=== PATIENT | female | born 1985 | race Caucasian/White ===

== ENCOUNTER 2018-01-03 20:49 | Emergency (ER) | payer MEDICAID, OTHER ==
[~2018-01-03] VITALS: Ht 157.5 cm; Wt 118.2 kg
[2018-01-03] MEDS ORDERED: PRENATAL VITS (21:00)
[2018-01-03 22:08] LABS: BASOPHILS # (AUTO) 0.05 x10^3/uL (0-0.1); BASOPHILS % (AUTO) 0 % (0-1); EOSINOPHILS % (AUTO) 1 % (1-7); LYMPHOCYTES # (AUTO) 2.91 x10^3/uL (1-3.4); LYMPHOCYTES % (AUTO) 19 % (22-44); MD NO; MEAN CORPUSCULAR HEMOGLOBIN 29.9 pg (27.0-34.8); MEAN PLATELET VOLUME 8.6 fL (7.4-10.4); MONOCYTES # (AUTO) 0.82 x10^3/uL (0.2-0.8); MONOCYTES % (AUTO) 5 % (2-9); NEUTROPHILS % (AUTO) 74 % (42-75); PLATELET COUNT 398 x10^3/uL (130-400); RED CELL DISTRIBUTION WIDTH 18.2 % (9.6-15.2)
[2018-01-03 22:14] LABS: ALBUMIN 2.8 g/dL (3.4-5.0); ANION GAP 7 mmol/L (5-15); CHLORIDE 107 mmol/L (98-107); CREATININE 0.69 mg/dL (0.55-1.02)
[2018-01-03 22:18] LABS: TROPONIN I < 0.015 ng/mL (0.000-0.045)
[2018-01-03 23:51] VITALS: BP 122/64
== END 2018-01-04 00:37 | disposition home or self-care (01) ==
LOC: ED 01-04 00:34
DX: O26.891 Other specified pregnancy related conditions, first trimester (principal); R07.89 Other chest pain; I45.10 Unspecified right bundle-branch block; R94.31 Abnormal electrocardiogram [ECG] [EKG]; Z3A.12 12 weeks gestation of pregnancy
CPT/HCPCS: 36415; 71045; 80048; 82040; 84484; 85025; 85379; 93005; 99285

== ENCOUNTER 2018-05-13 13:59 | Emergency (ER) | payer MEDICAID ==
[~2018-05-13] VITALS: Ht 157.5 cm; Wt 121.2 kg
[~2018-05-13 13:59] MED LIST: PRENATAL VITS
[2018-05-13 14:45] LABS: BASOPHILS # (AUTO) 0.04 x10^3/uL (0-0.1); BASOPHILS % (AUTO) 0 % (0-1); EOSINOPHILS # (AUTO) 0.13 x10^3/uL (0-0.4); EOSINOPHILS % (AUTO) 1 % (1-7); LYMPHOCYTES # (AUTO) 2.19 x10^3/uL (1-3.4); LYMPHOCYTES % (AUTO) 16 % (22-44); MD NO; MEAN CORPUSCULAR HGB CONC 34.5 g/dL (32.4-35.8); MEAN CORPUSCULAR VOLUME 92.9 fL (80-100); MEAN PLATELET VOLUME 9.1 fL (7.4-10.4); MONOCYTES # (AUTO) 0.87 x10^3/uL (0.2-0.8); MONOCYTES % (AUTO) 6 % (2-9); NEUTROPHILS % (AUTO) 76 % (42-75); PLATELET COUNT 346 x10^3/uL (130-400); RED BLOOD COUNT 4.23 x10^6/uL (3.82-5.3); RED CELL DISTRIBUTION WIDTH 14.6 % (9.6-15.2)
[2018-05-13 14:52] LABS: ALBUMIN 2.6 g/dL (3.4-5.0); ANION GAP 10 mmol/L (5-15); CHLORIDE 108 mmol/L (98-107); CREATININE 0.59 mg/dL (0.55-1.02)
[2018-05-13 15:03] LABS: MICROSCOPIC AUTO
[2018-05-13 15:10] LABS: CULTURE INDICATED? YES
[2018-05-13 16:12] VITALS: BP 107/59
== END 2018-05-13 16:20 | disposition home or self-care (01) ==
LOC: ED 16:00
DX: O23.43 Unspecified infection of urinary tract in pregnancy, third trimester (principal); Z3A.31 31 weeks gestation of pregnancy
CPT/HCPCS: 36415; 71045; 80048; 81001; 82040; 83880; 85025; 87086; 93005; 99285

== ENCOUNTER 2018-06-03 16:09 | Outpatient (CLI) | payer MEDICAID ==
[~2018-06-03] VITALS: Ht 160 cm; Wt 120.5 kg
[2018-06-03 16:22] VITALS: BP 136/70
[2018-06-03 17:22] LABS: MICROSCOPIC AUTO
== END 2018-06-03 18:08 | disposition home or self-care (01) ==
LOC: LDOP 16:09
PROVIDERS: ATTEND Obstetrics & Gynecology
DX: O42.913 Preterm premature rupture of membranes, unspecified as to length of time between rupture and onset of labor, third trimester (principal); Z3A.34 34 weeks gestation of pregnancy
CPT/HCPCS: 59025; 81001; 84112; 87086; 99211; G0463

== ENCOUNTER 2018-07-01 05:08 | Inpatient (IN) | payer MEDICAID ==
[~2018-07-01] VITALS: Ht 157.5 cm; Wt 122.7 kg
[2018-07-01] MEDS ORDERED: OXYTOCIN 30U/ 0.9% NaCL 500ML 500 ML IV PRN ×2 (05:13)
[2018-07-01] MEDS ORDERED: OXYTOCIN 30U/ 0.9% NaCL 500ML 500 ML IV ONE (05:13)
[2018-07-01] MEDS ORDERED: D5%-LACTATED RINGERS 1,000 ML IV SCH (05:13)
[2018-07-01 05:29] VITALS: BP 109/62
[2018-07-01] MEDS ORDERED: FENTANYL PF 100 MCG/2ML IVPush PRN (05:30)
[2018-07-01] MEDS ORDERED: ALUMINUM/MAG/SIMETHICONE 30 ML UDC PO PRN (05:30)
[2018-07-01] MEDS ORDERED: ONDANSETRON 2MG/ML, 2ML IVPush PRN ×2 (05:30→10:30)
[2018-07-01] MEDS ORDERED: CALCIUM CARBONATE 500 MG TAB.CHEW PO PRN (05:30)
[2018-07-01] MEDS ORDERED: FENTANYL PF 100 MCG/2ML IV PRN (05:30)
[2018-07-01] MEDS ORDERED: INSU100I18 SQ-INSULIN (05:40)
[2018-07-01] MEDS ORDERED: INSU100I34 SQ-INSULIN (05:42)
[2018-07-01] MEDS ORDERED: PREN-3 PO (05:42)
[2018-07-01] MEDS ORDERED: OXYTOCIN 30U/ 0.9% NaCL 500ML 500 ML ONE ×2 (05:47→16:54)
[2018-07-01 05:50] LABS: BASOPHILS # (AUTO) 0.05 x10^3/uL (0-0.1); BASOPHILS % (AUTO) 0 % (0-1); EOSINOPHILS # (AUTO) 0.07 x10^3/uL (0-0.4); EOSINOPHILS % (AUTO) 1 % (1-7); LYMPHOCYTES # (AUTO) 2.39 x10^3/uL (1-3.4); LYMPHOCYTES % (AUTO) 21 % (22-44); MD NO; MEAN CORPUSCULAR HEMOGLOBIN 31.6 pg (27.0-34.8); MEAN CORPUSCULAR HGB CONC 34.1 g/dL (32.4-35.8); MEAN CORPUSCULAR VOLUME 92.6 fL (80-100); MEAN PLATELET VOLUME 10.5 fL (7.4-10.4); MONOCYTES # (AUTO) 0.68 x10^3/uL (0.2-0.8); MONOCYTES % (AUTO) 6 % (2-9); NEUTROPHILS # (AUTO) 8.46 x10^3/uL (1.8-6.8); NEUTROPHILS % (AUTO) 73 % (42-75); PLATELET COUNT 235 x10^3/uL (130-400); RED BLOOD COUNT 4.25 x10^6/uL (3.82-5.3); RED CELL DISTRIBUTION WIDTH 15.6 % (9.6-15.2)
[2018-07-01] MEDS: LACTATED RINGERS 1,000 ML IV SCH ×2 (05:56→09:47)
[2018-07-01] MEDS ORDERED: FENTANYL/BUPIV./NS/PF 250 ML EPIDCONT SCH ×2 (09:02→10:26)
[2018-07-01] MEDS ORDERED: FENTANYL PF 500 MCG, BUPIVACAINE/PF 0.5%, 30ML 62.5 ML in SODIUM CHLORIDE 0.9% 177.5 ML EPIDCONT SCH (09:30)
[2018-07-01] MEDS ORDERED: LIDOCAINE 1%-EPI 1:100K, 20ML ONE (09:56)
[2018-07-01] MEDS ORDERED: BUPIVACAINE 0.25% ONE (09:56)
[2018-07-01] MEDS ORDERED: LACTATED RINGERS 1,000 ML IV SCH (10:26)
[2018-07-01] MEDS ORDERED: DIPHENHYDRAMINE 50 MG/ML, 1ML IVPush PRN (10:30)
[2018-07-01] MEDS ORDERED: LACTATED RINGERS 1,000 ML IVBOLUS PRN (10:30)
[2018-07-01] MEDS ORDERED: NALOXONE 0.4 MG/ML, 1ML IVPush PRN (10:30)
[2018-07-01] MEDS ORDERED: EPHEDRINE 50 MG/ML, 1ML IVPush PRN (10:30)
[2018-07-01] MEDS ORDERED: NEWBORN KIT ONE (16:21)
[2018-07-01] MEDS ORDERED: DOCUSATE 100 MG CAPSULE PO PRN (16:30)
[2018-07-01] MEDS ORDERED: MISOPROSTOL 200 MCG TABLET PR PRN (16:30)
[2018-07-01] MEDS ORDERED: METHYLERGONOVINE 0.2 MG/ML IM PRN (16:30)
[2018-07-01] MEDS ORDERED: ONDANSETRON 2MG/ML, 2ML IV PRN (16:30)
[2018-07-01] MEDS ORDERED: ACETAMINOPHEN 325 MG TABLET PO PRN (16:30)
[2018-07-01] MEDS ORDERED: OXYcodone/APAP 5/325MG TABLET PO PRN (16:30)
[2018-07-01] MEDS ORDERED: IBUPROFEN 600 MG TABLET ONE (16:54)
[2018-07-01] MEDS: IBUPROFEN 600 MG TABLET PO PRN (16:57)
[2018-07-01] MEDS: OXYTOCIN 30U/ 0.9% NaCL 500ML 500 ML IV SCH (16:57)
[2018-07-01 19:25] VITALS: BP 110/73
[2018-07-01] MEDS: OXYcodone/APAP 5/325MG TABLET PO PRN (20:45)
[2018-07-01 23:30] VITALS: BP 114/72
[2018-07-02] MEDS: IBUPROFEN 600 MG TABLET PO PRN ×3 (00:16→15:39)
[2018-07-02] MEDS: OXYTOCIN 30U/ 0.9% NaCL 500ML 500 ML IV SCH ×2 (02:25→12:25)
[2018-07-02 04:15] VITALS: BP 101/58
[2018-07-02 06:07] LABS: BASOPHILS # (AUTO) 0.04 x10^3/uL (0-0.1); BASOPHILS % (AUTO) 0 % (0-1); EOSINOPHILS # (AUTO) 0.36 x10^3/uL (0-0.4); EOSINOPHILS % (AUTO) 3 % (1-7); LYMPHOCYTES # (AUTO) 2.81 x10^3/uL (1-3.4); LYMPHOCYTES % (AUTO) 21 % (22-44); MD NO; MEAN CORPUSCULAR HEMOGLOBIN 32.4 pg (27.0-34.8); MEAN CORPUSCULAR HGB CONC 34.5 g/dL (32.4-35.8); MEAN CORPUSCULAR VOLUME 93.7 fL (80-100); MEAN PLATELET VOLUME 10.6 fL (7.4-10.4); MONOCYTES # (AUTO) 0.86 x10^3/uL (0.2-0.8); MONOCYTES % (AUTO) 6 % (2-9); NEUTROPHILS # (AUTO) 9.53 x10^3/uL (1.8-6.8); NEUTROPHILS % (AUTO) 70 % (42-75); PLATELET COUNT 201 x10^3/uL (130-400); RED CELL DISTRIBUTION WIDTH 16.6 % (9.6-15.2)
[2018-07-02 07:20] VITALS: BP 122/80
[2018-07-02] MEDS: OXYcodone/APAP 5/325MG TABLET PO PRN ×3 (07:46→17:01)
[2018-07-02] MEDS ORDERED: PRENATAL VIT/IRON/FA 1 EACH TABLET PO SCH (09:00)
[2018-07-02 12:27] VITALS: BP 114/69
[2018-07-02] MEDS ORDERED: IBUP-1222 PO (14:05)
[2018-07-02 17:30] VITALS: BP 117/80
[2018-07-02 19:30] VITALS: BP 101/60
== END 2018-07-02 21:10 | disposition home or self-care (01) | DRG 806 ==
LOC: LDIP 05:08 → 2NW 18:55
PROVIDERS: ADMIT Obstetrics & Gynecology; ATTEND Obstetrics & Gynecology
PROC: 10E0XZZ Delivery of Products of Conception, External Approach (ICD-10-PCS; principal; 2018-07-01)
PROC: 10H07YZ Insertion of Other Device into Products of Conception, Via Natural or Artificial Opening (ICD-10-PCS; 2018-07-01)
PROC: 10907ZC Drainage of Amniotic Fluid, Therapeutic from Products of Conception, Via Natural or Artificial Opening (ICD-10-PCS; 2018-07-01)
PROC: 3E0R3BZ Introduction of Anesthetic Agent into Spinal Canal, Percutaneous Approach (ICD-10-PCS; 2018-07-01)
PROC: 00HU33Z Insertion of Infusion Device into Spinal Canal, Percutaneous Approach (ICD-10-PCS; 2018-07-01)
DX: O99.214 Obesity complicating childbirth (principal); Z68.42 Body mass index [BMI] 45.0-49.9, adult; Z37.0 Single live birth; E66.01 Morbid (severe) obesity due to excess calories; O24.424 Gestational diabetes mellitus in childbirth, insulin controlled; O66.0 Obstructed labor due to shoulder dystocia; Z3A.38 38 weeks gestation of pregnancy
CPT/HCPCS: 36415; J7121; 82962; 85025; 86850; 86900; G0378; J2590; J7120

== ENCOUNTER → 2018-09-13 | Outpatient (CLI) | payer OTHER ==
[~2018-09-13] MED LIST changes: +IBUP-1222 PO; +INSU100I18 SQ-INSULIN; +INSU100I34 SQ-INSULIN; +PREN-3 PO
== END | disposition home or self-care (01) ==
LOC: LAB 13:40
PROVIDERS: ATTEND Obstetrics & Gynecology
DX: Z01.812 Encounter for preprocedural laboratory examination (principal)
CPT/HCPCS: 36415; 84702

== ENCOUNTER → 2019-01-15 | Outpatient (CLI) | payer OTHER ==
[2019-01-15 14:04] LABS: BASOPHILS # (AUTO) 0.03 x10^3/uL (0-0.1); BASOPHILS % (AUTO) 0 % (0-1); EOSINOPHILS # (AUTO) 0.31 x10^3/uL (0-0.4); EOSINOPHILS % (AUTO) 3 % (1-7); LYMPHOCYTES # (AUTO) 2.38 x10^3/uL (1-3.4); LYMPHOCYTES % (AUTO) 22 % (22-44); MD NO; MEAN CORPUSCULAR HEMOGLOBIN 31.9 pg (27.0-34.8); MEAN CORPUSCULAR HGB CONC 33.9 g/dL (32.4-35.8); MEAN CORPUSCULAR VOLUME 93.8 fL (80-100); MONOCYTES % (AUTO) 5 % (2-9); NEUTROPHILS # (AUTO) 7.75 x10^3/uL (1.8-6.8); NEUTROPHILS % (AUTO) 70 % (42-75); PLATELET COUNT 427 x10^3/uL (130-400); RED BLOOD COUNT 4.67 x10^6/uL (3.82-5.3); RED CELL DISTRIBUTION WIDTH 13.9 % (9.6-15.2)
[2019-01-15 14:12] LABS: ALANINE AMINOTRANSFERASE 22 U/L (12-78); ALBUMIN 3.7 g/dL (3.4-5.0); ANION GAP 7 mmol/L (5-15); CALCIUM 8.8 mg/dL (8.5-10.1); CHLORIDE 109 mmol/L (98-107)
[2019-01-15 14:39] LABS: ALKALINE PHOSPHATASE 96 U/L (45-117); BILIRUBIN,TOTAL 0.3 mg/dL (0.2-1.0); CREATININE 0.74 mg/dL (0.55-1.02); FREE T4 (FREE THYROXINE) 0.87 ng/dL (0.76-1.46); THYROID STIMULATING HORMONE 0.931 mIU/L (0.358-3.740); TOTAL PROTEIN 7.8 g/dL (6.4-8.2)
[2019-01-15 14:43] LABS: FOLATE LEVEL > 20.0 ng/mL (3.1-17.5)
== END | disposition home or self-care (01) ==
LOC: LAB 13:37
PROVIDERS: ATTEND Nurse Practitioner Family
DX: Z39.1 Encounter for care and examination of lactating mother (principal); Z00.00 Encounter for general adult medical examination without abnormal findings; D72.829 Elevated white blood cell count, unspecified; F32.0 Major depressive disorder, single episode, mild; R53.83 Other fatigue; R63.5 Abnormal weight gain; Z72.820 Sleep deprivation
CPT/HCPCS: 36415; 80053; 82607; 82746; 83036; 84439; 84443; 85025

== ENCOUNTER → 2019-09-24 | Outpatient (CLI) | payer OTHER | END | disposition home or self-care (01) | LOC: RAD 14:59 | PROVIDERS: ATTEND Physical Medicine & Rehabilitation Pain Medicine | DX: M47.817 Spondylosis without myelopathy or radiculopathy, lumbosacral region (principal); M46.1 Sacroiliitis, not elsewhere classified; M51.36 Other intervertebral disc degeneration, lumbar region; G89.4 Chronic pain syndrome; Z71.9 Counseling, unspecified | CPT/HCPCS: 72148 ==

== ENCOUNTER 2020-01-09 08:51 | Emergency (ER) | payer OTHER ==
[~2020-01-09] VITALS: Ht 157.5 cm; Wt 121.0 kg
[2020-01-09 08:56] VITALS: BP 121/74
--- NOTE | 2020-01-09 09:06 | NUR ---
THIS IS A 34 YEAR OLD FEMALE WHO C/O OF SEVERE PELVIC PAIN. PT STATES SHE HAD GONE TO THE URGENT CARE AND HAD A URINE SAMPLE AND EVERYTHING WAS "POSITIVE" AND WAS TOLD TO COME TO THE ED. PT PLACED IN GOWN. JJ ARBOLEDA.
--- NOTE | 2020-01-09 09:29 | NUR ---
Pt states that she is having bleeding from her vaginal area. Denies mentration. States she has "implented control" while motioning to her left upper extermity. pt verbalized at the she tested "positive everything except pregancy." pt states she needs to void but was told she was going to need "a small catheter." Encouraged pt to wait for the doctor to confirm orders but educted on how to obtain a clean catch UA if unable to wait for MD. pt verbalizes understanding.
--- NOTE | 2020-01-09 09:57 | NUR ---
straight cath completed using sterile technique. Lab obtianed was red in color. Handed to laboratory miller. pt up to the bathrrom to void.
[2020-01-09 10:23] LABS: MICROSCOPIC INDICATED
[2020-01-09 10:28] LABS: MEAN CORPUSCULAR HEMOGLOBIN 31.2 pg (27.0-34.8); MEAN CORPUSCULAR HGB CONC 33.8 g/dL (32.4-35.8); MEAN CORPUSCULAR VOLUME 92.4 fL (80-100); MEAN PLATELET VOLUME 8.4 fL (7.4-10.4); PLATELET COUNT 421 x10^3/uL (130-400); RED BLOOD COUNT 4.91 x10^6/uL (3.82-5.3); RED CELL DISTRIBUTION WIDTH 14.2 % (9.6-15.2)
[2020-01-09 10:35] LABS: ALBUMIN 3.6 g/dL (3.4-5.0); ANION GAP 9 mmol/L (5-15); CALCIUM 8.4 mg/dL (8.5-10.1); CHLORIDE 110 mmol/L (98-107)
[2020-01-09 10:41] LABS: ALANINE AMINOTRANSFERASE 19 U/L (12-78); ALKALINE PHOSPHATASE 82 U/L (45-117); BILIRUBIN,TOTAL 0.5 mg/dL (0.2-1.0); CREATININE 0.73 mg/dL (0.55-1.02); TOTAL PROTEIN 8.1 g/dL (6.4-8.2)
[2020-01-09 11:11] LABS: MD YES
[2020-01-09 11:13] LABS: <RBC MORPHOLOGY> NORMAL; BAND#(MANUAL) 0.18 x10^3/uL; BANDS%(MANUAL) 1 % (0-7); EOS#(MANUAL) 0.18 x10^3/uL (0.0-0.4); EOS% (MANUAL) 1 % (1-7); LYMPH#(MANUAL) 2.17 x10^3/uL (1-3.4); LYMPHS% (MANUAL) 12 % (22-44); MONOS#(MANUAL) 1.27 x10^3/uL (0.3-2.7); MONOS% (MANUAL) 7 % (2-9); SEGS% (MANUAL) 79 % (42-75)
[2020-01-09 11:14] LABS: <PLATELET ESTIMATE> INCREASED; <PLT MORPHOLOGY> NORMAL PLT MORPH
[2020-01-09] MEDS ORDERED: OMNIPAQUE 350 MG/ML, 100ML BOTTLE ONE (11:48)
== END 2020-01-09 12:50 | disposition home or self-care (01) ==
LOC: ED 09:16
DX: N83.209 Unspecified ovarian cyst, unspecified side (principal); N39.0 Urinary tract infection, site not specified; D72.829 Elevated white blood cell count, unspecified; N94.6 Dysmenorrhea, unspecified; R10.30 Lower abdominal pain, unspecified; N93.9 Abnormal uterine and vaginal bleeding, unspecified; G89.29 Other chronic pain
CPT/HCPCS: 36415; 74177; 80053; 81001; 84703; 85025; 87086; 99285; Q9967

== ENCOUNTER → 2020-06-18 | Outpatient (CLI) | payer OTHER | END | disposition home or self-care (01) | LOC: RAD 14:47 | PROVIDERS: ATTEND Family Medicine | DX: K80.20 Calculus of gallbladder without cholecystitis without obstruction (principal); K76.0 Fatty (change of) liver, not elsewhere classified; R16.0 Hepatomegaly, not elsewhere classified | CPT/HCPCS: 76705 ==

== ENCOUNTER → 2020-06-21 | Outpatient (CLI) | payer OTHER | END | disposition home or self-care (01) | LOC: CFH 13:57 | PROVIDERS: ATTEND Obstetrics & Gynecology | DX: N64.4 Mastodynia (principal); N63.10 Unspecified lump in the right breast, unspecified quadrant | CPT/HCPCS: 76642; 77066; G0279 ==

== ENCOUNTER → 2020-06-24 | Outpatient (CLI) | payer OTHER ==
[2020-06-24 07:38] LABS: BASOPHILS % (AUTO) 1 % (0-1); EOSINOPHILS % (AUTO) 2 % (1-7); LYMPHOCYTES % (AUTO) 19 % (22-44); MEAN CORPUSCULAR HGB CONC 34.4 g/dL (32.4-35.8); MEAN PLATELET VOLUME 8.3 fL (7.4-10.4); MONOCYTES % (AUTO) 5 % (2-9); NEUTROPHILS % (AUTO) 74 % (42-75); PLATELET COUNT 464 x10^3/uL (130-400); RED CELL DISTRIBUTION WIDTH 13.6 % (9.6-15.2)
[2020-06-24 07:41] LABS: MD NO
[2020-06-24 07:45] LABS: ALBUMIN 3.7 g/dL (3.4-5.0); ANION GAP 5 mmol/L (5-15); BILIRUBIN, DIRECT 0.1 mg/dL (0.1-0.2); CALCIUM 8.8 mg/dL (8.5-10.1); CHLORIDE 112 mmol/L (98-107)
[2020-06-24 08:12] LABS: % IRON SATURATION 27 % (20-55); ALANINE AMINOTRANSFERASE 17 U/L (12-78); ALKALINE PHOSPHATASE 81 U/L (45-117); BILIRUBIN,TOTAL 0.4 mg/dL (0.2-1.0); CHOL/HDL RATIO 4.9; CHOLESTEROL, TOTAL 176 mg/dL (140-239); CREATININE 0.73 mg/dL (0.55-1.02); FOLATE LEVEL 19.4 ng/mL (3.1-17.5); FREE T4 (FREE THYROXINE) 1.01 ng/dL (0.76-1.46); HDL CHOL % 20 % (28-40); HDL CHOLESTEROL (DIRECT) 36 mg/dL (40-60); IRON LEVEL 75 mcg/dL (50-170); LDL CHOLESTEROL,CALCULATED 116 mg/dL (54-169); LDL/HDL RATIO 3.2 (0.5-3.0); TOTAL IRON BINDING CAPACITY 278 mcg/dL (250-450); TRANSFERRIN 240 mg/dL (200-360); TRIGLYCERIDES 121 mg/dL (50-200); VLDL CHOLESTEROL 24 mg/dL (0-25)
[2020-06-24 10:23] LABS: MICROSCOPIC INDICATED
== END | disposition home or self-care (01) ==
LOC: LAB 07:04
PROVIDERS: ATTEND Nurse Practitioner Primary Care
DX: Z13.220 Encounter for screening for lipoid disorders (principal); R10.9 Unspecified abdominal pain; K80.20 Calculus of gallbladder without cholecystitis without obstruction; R16.0 Hepatomegaly, not elsewhere classified; N92.6 Irregular menstruation, unspecified; D72.9 Disorder of white blood cells, unspecified; K21.9 Gastro-esophageal reflux disease without esophagitis; F06.31 Mood disorder due to known physiological condition with depressive features
CPT/HCPCS: 36415; 80053; 80061; 81001; 82248; 82525; 82607; 82652; 82728; 82746; 83036; 83516; 83540; 83550; 83735; 84207; 84260; 84425; 84439; 84443; 84466; 84481; 84630; 85025; 86225; 86235; 86376; 86800

== ENCOUNTER → 2020-07-29 | Outpatient (CLI) | payer OTHER ==
[~2020-07-29] MED LIST changes: +ASCO-184 PO; +HAIR SKIN NAILS PO; +HYDR-3240 PO; +MULT-752 PO; +PSYL660P18 PO; +TIZA-106 PO
== END | disposition home or self-care (01) ==
LOC: STAR 15:05
PROVIDERS: ATTEND Thoracic Surgery (Cardiothoracic Vascular Surgery)
DX: Z20.828 Contact with and (suspected) exposure to other viral communicable diseases (principal)
CPT/HCPCS: 87635

== ENCOUNTER 2020-08-04 10:10 | Day surgery (SDC) | payer OTHER ==
[~2020-08-04] VITALS: Ht 157.5 cm; Wt 115.9 kg
[~2020-08-04 10:10] MED LIST changes: +BUPIVACAINE/PF 0.5% ONE; +EPINEPHRINE 1 MG/ML, 1ML ONE; +HYDR-1067 PO; -HYDR-3240 PO
[2020-08-04 11:12] VITALS: BP 103/68
[2020-08-04] MEDS ORDERED: CHLORHEXIDINE 15 ML UDC ONE (11:19)
[2020-08-04 11:20] LABS: HCG UR SG 1.022 (1.003-1.030)
[2020-08-04] MEDS ORDERED: CHLORHEXIDINE 15 ML UDC MM ONE (11:30)
[2020-08-04] MEDS ORDERED: LACTATED RINGERS 1,000 ML IV SCH ×2 (11:30→13:00)
[2020-08-04] MEDS ORDERED: FENTANYL PF 250 MCG/5ML ONE (11:58)
[2020-08-04] MEDS ORDERED: MIDAZOLAM 1 MG/ML, 2ML ONE (11:58)
[2020-08-04] MEDS ORDERED: SUCCINYLCHOLINE 20 MG/ML, 10ML ONE (12:08)
[2020-08-04] MEDS ORDERED: ROCURONIUM 10 MG/ML,10ML ONE (12:08)
[2020-08-04] MEDS ORDERED: KETOROLAC 30 MG/1 ML ONE (12:08)
[2020-08-04] MEDS ORDERED: DEXAMETHASONE 4 MG/ML, 1ML ONE (12:08)
[2020-08-04] MEDS ORDERED: CEFAZOLIN 1,000 MG ONE (12:08)
[2020-08-04] MEDS ORDERED: ONDANSETRON 2MG/ML, 2ML ONE (12:08)
[2020-08-04] MEDS ORDERED: BUPIVACAINE/PF-EPI 0.5% 1:200K INFIL ONE (12:20)
[2020-08-04] MEDS ORDERED: PROPOFOL 50 ML ONE (12:35)
[2020-08-04] MEDS ORDERED: FENTANYL PF 100 MCG/2ML ONE ×2 (12:46→13:03)
[2020-08-04] MEDS ORDERED: SUGAMMADEX 200 MG/2 ML IVPush ONE (12:48)
[2020-08-04] MEDS ORDERED: morphine SULFATE 10 MG/ML, 1ML IVPush PRN (13:00)
[2020-08-04] MEDS ORDERED: HYDROmorphone 1 MG/ML, 1ML INJ IVPush PRN (13:00)
[2020-08-04] MEDS ORDERED: ACETAMINOPHEN 325 MG TABLET PO PRN (13:00)
[2020-08-04] MEDS ORDERED: HYDROcodone/APAP 5/325 TABLET PO PRN (13:00)
[2020-08-04] MEDS ORDERED: MEPERIDINE/PF 25MG/0.5ML IVPush PRN (13:00)
[2020-08-04] MEDS ORDERED: PROMETHAZINE 25 MG/ML, 1ML IVPush PRN (13:00)
[2020-08-04] MEDS ORDERED: LORazepam 2 MG/ML, 1ML IVPush PRN (13:00)
[2020-08-04] MEDS ORDERED: METHOCARBAMOL 1,000 MG in DEXTROSE 5% 100 ML IV ONE (13:00)
[2020-08-04] MEDS ORDERED: ONDANSETRON 2MG/ML, 2ML IVPush PRN ×2 (13:00)
[2020-08-04] MEDS ORDERED: METHOCARBAMOL 1,000 MG in DEXTROSE 5% 100 ML IV PRN (13:00)
[2020-08-04] MEDS ORDERED: HYDR-1067 PO (13:03)
[2020-08-04] MEDS ORDERED: OXYcodone 5 MG/5 ML ORAL.SOL UDC ONE (13:03)
[2020-08-04] MEDS: FENTANYL PF 100 MCG/2ML IV PRN ×2 (13:10→13:30)
[2020-08-04] MEDS: OXYcodone 5 MG/5 ML ORAL.SOL UDC PO PRN ×2 (13:25→13:35)
[2020-08-04] MEDS ORDERED: OXYcodone 5 MG/5 ML ORAL.SOL UDC PO PRN (15:00)
== END 2020-08-04 15:20 | disposition home or self-care (01) ==
LOC: OUT 10:10
PROVIDERS: ATTEND Thoracic Surgery (Cardiothoracic Vascular Surgery)
DX: K80.10 Calculus of gallbladder with chronic cholecystitis without obstruction (principal); I10 Essential (primary) hypertension; E78.5 Hyperlipidemia, unspecified; E66.9 Obesity, unspecified; Z68.42 Body mass index [BMI] 45.0-49.9, adult; Z79.891 Long term (current) use of opiate analgesic; Z79.899 Other long term (current) drug therapy
CPT/HCPCS: 47562; 81025; 88304; J0171; J0330; J0690; J1100; J1885; J2250; J2405; J2704; J3010; J7120